=== PATIENT | female | born 1995 | race Caucasian/White ===

== ENCOUNTER → 2021-07-04 10:12 | Outpatient (BNVA) | payer OTHER, SELFPAY | PROVIDERS: Family Provider Family Medicine; PCP Family Medicine; Visit Provider Obstetrics & Gynecology | DX: Z34.91 Encounter for supervision of normal pregnancy, unspecified, first trimester (principal); Z3A.11 11 weeks gestation of pregnancy | CPT/HCPCS: 80307; 84315; 85027; 86592; 86762; 86803; 86850; 86900; 87086; 87340; 87491; 87591 ==

== ENCOUNTER → 2021-08-31 08:08 | Outpatient (BNVA) | payer OTHER, SELFPAY | PROVIDERS: Family Provider Family Medicine; PCP Family Medicine; Visit Provider Obstetrics & Gynecology | DX: Z36.87 Encounter for antenatal screening for uncertain dates (principal) | CPT/HCPCS: 76805 ==

== ENCOUNTER → 2021-10-31 09:17 | Outpatient (BNVA) | payer OTHER, SELFPAY | PROVIDERS: Family Provider Family Medicine; PCP Family Medicine; Visit Provider Obstetrics & Gynecology | DX: O44.40 Low lying placenta NOS or without hemorrhage, unspecified trimester (principal); Z3A.00 Weeks of gestation of pregnancy not specified | CPT/HCPCS: 82950; 84315; 85027 ==

== ENCOUNTER → 2021-11-03 08:08 | Outpatient (BNVA) | payer OTHER, SELFPAY | PROVIDERS: Family Provider Family Medicine; PCP Family Medicine; Visit Provider Obstetrics & Gynecology | DX: Z34.90 Encounter for supervision of normal pregnancy, unspecified, unspecified trimester (principal) | CPT/HCPCS: 82951; 82952 ==

== ENCOUNTER 2021-12-02 05:47 | Outpatient (CLI) | payer OTHER, SELFPAY ==
--- NOTE | 2021-12-02 06:15 | US_ITS ---
WS: [id number] LIMITED OBSTETRICAL ULTRASOUND HISTORY: O44.40 - Low lying placenta NOS or without hemorrhage COMPARISON: 08/31/2021 and 05/24/2021 Presentation: Cephalic. Cervix: Difficult to visualize. Does appear shorter than on the prior study. Cervical length is appro ximately 3.7 cm. head is obscuring the cervix. Placenta: Anterior, no previa or abruption. Placenta ends 2.8 cm above the internal cervical os. Grade: 2 HEART: FHR of 129 BPM. measurements: BPD = 7.9 cm = 31w6d HC = 29.8 cm = 33w0d AC = 28.8 cm = 32w6d FL = 6.5 cm = 33w3d Visually the amniotic fluid volume appears low normal. EFW: 2080 g; 58 %. AGA by ultrasound: 32 weeks 6 days BRYON by ultrasound: 01/21/2022 US/US OB limited [id number] IMPRESSION: 1. Single intrauterine gestation of 32 weeks 6 days with an EDC of 01/21/2022. 2. Appropriate growth since the first trimester ultrasound. 3. Anterior grade 2 placenta ends 2.8 cm above the internal cervical os. No pr evia. 4. Visually the amniotic fluid volume is low normal. Recommend follow-up abdom inal fluid index evaluation.
== END 2021-12-02 05:48 | disposition home or self-care (01) ==
LOC: RAD 05:47
PROVIDERS: PCP Family Medicine; Visit Provider Obstetrics & Gynecology
DX: O44.40 Low lying placenta NOS or without hemorrhage, unspecified trimester (principal); Z3A.00 Weeks of gestation of pregnancy not specified
CPT/HCPCS: 76815; 84315

== ENCOUNTER 2021-12-21 06:04 | Outpatient (CLI) | payer OTHER, SELFPAY ==
--- NOTE | 2021-12-21 06:15 | US_ITS ---
WS: [id number] ULTRASOUND OB FOCUSED HISTORY: Evaluate amniotic fluid index. COMPARISON: 12/02/2021 Single intrauterine gestation is present in vertex presentation. The cervix is closed. Placenta is an terior with no previa or abruption. heart rate at 133 BPM. Amniotic fluid index: 9.3 cm. Largest vertical pocket is 2.8 cm. US/US OB limited [id number] IMPRESSION: 1. Low normal amniotic fluid index. Amniotic fluid index is just above the 5th percentile for age and continues to be low normal. 2. Normal cardiac activity.
== END 2021-12-21 06:05 | disposition home or self-care (01) ==
PROVIDERS: PCP Family Medicine; Visit Provider Obstetrics & Gynecology
DX: Z34.90 Encounter for supervision of normal pregnancy, unspecified, unspecified trimester (principal)
CPT/HCPCS: 76815; 81000; 87081

== ENCOUNTER 2022-01-03 11:15 | Outpatient (CLI) | payer OTHER, SELFPAY ==
[2022-01-03 11:27] VITALS: BP 123/79; PULSE 93
[2022-01-03 11:30] VITALS: BMI 30.2
[2022-01-03 11:42] VITALS: RESP 17; TEMP 35.9
--- NOTE | 2022-01-03 11:43 | US_ITS ---
WS: [id number] ULTRASOUND OB FOCUSED HISTORY: BRADLY possible leaking fluids COMPARISON: 12/21/2021 Single intrauterine gestation in vertex position. Cervix is closed at 4.2 cm. heart rate at 138 BPM. Amniotic fluid index: 10.7 cm which is between the fifth and 50th percentiles. Slightly improved sinc e the prior study. Largest vertical pocket of amniotic fluid is 4.2 cm. Placenta is anterior grade 1. US/US OB limited [id number] IMPRESSION: 1. Amniotic fluid index between the fifth and 50th percentiles. Slightly impro slick since 12/21/2021. 2. Normal cardiac activity.
[2022-01-03 11:47] VITALS: BP 113/72; PULSE 79
[2022-01-03 12:07] VITALS: BP 123/73; PULSE 74
[2022-01-03 12:17] VITALS: BP 123/73; PULSE 74
== END 2022-01-03 12:17 | disposition home or self-care (01) ==
LOC: OPOB 11:20 → OBGYN 11:20
PROVIDERS: PCP Family Medicine; Visit Provider Obstetrics & Gynecology
DX: O26.899 Other specified pregnancy related conditions, unspecified trimester (principal); Z3A.00 Weeks of gestation of pregnancy not specified; N89.8 Other specified noninflammatory disorders of vagina
CPT/HCPCS: 59025; 76815; 83986; 84315

== ENCOUNTER 2022-01-15 06:20 | Outpatient (CLI) | payer OTHER, SELFPAY ==
[2022-01-15] VITALS (7 sets, daily range): BP systolic 115–133; BP diastolic 73–78; PULSE 83–100; RESP 17; TEMP 36.2; BMI 31.2
[2022-01-15 07:07] LABS: Glucose Urine UA Norm (Normal); Protein Urine Neg (Negative); Specific Gravity, Urine 1.015 (1.005-1.030); Urine Appearance Clear (CLEAR); Urine Color Yellow (Yellow); pH Urine 6.5 (5-7)
[2022-01-15 07:08] LABS: Blood Urine 3+ (Negative); Ketones Urine 1+ (Negative)
[2022-01-15 07:09] LABS: Bilirubin Urine Neg (Negative); Leukocyte Esterase Urine 1+ (Negative); Nitrate Urine Negative (Negative); Urobilinogen Urine Norm (Negative); WBC Urine 25-40 /hpf (0-5)
[2022-01-15 07:12] LABS: Add Urine Culture? Yes; Bacteria Urine 2+ /hpf; Mucus Urine 1+ /hpf
== END 2022-01-15 08:13 | disposition home or self-care (01) ==
LOC: OPOB 06:22 → OBGYN 08:11
PROVIDERS: PCP Family Medicine; Visit Provider Obstetrics & Gynecology
DX: O46.90 Antepartum hemorrhage, unspecified, unspecified trimester (principal); Z3A.00 Weeks of gestation of pregnancy not specified; R10.9 Unspecified abdominal pain
CPT/HCPCS: 59025; 81001; 87086; 99211

== ENCOUNTER → 2022-01-17 07:54 | Outpatient (BNVA) | payer OTHER, SELFPAY | PROVIDERS: PCP Family Medicine; Visit Provider Obstetrics & Gynecology | DX: Z34.90 Encounter for supervision of normal pregnancy, unspecified, unspecified trimester (principal) | CPT/HCPCS: 76815; 84315 ==

== ENCOUNTER 2022-01-19 01:38 | Outpatient (CLI) | payer OTHER, SELFPAY ==
[2022-01-19 01:38] VITALS: BMI 30.2
[2022-01-19 02:17] LABS: Add Urine Culture? Yes; Bacteria Urine 1+ /hpf; Bilirubin Urine Neg (Negative); Blood Urine 3+ (Negative); Glucose Urine UA Norm (Normal); Ketones Urine 2+ (Negative); Leukocyte Esterase Urine 2+ (Negative); Nitrate Urine Negative (Negative); Protein Urine Neg (Negative); RBC Urine 0-4 /hpf (0-2); Specific Gravity, Urine 1.005 (1.005-1.030); Urine Appearance Turbid (CLEAR); Urine Color Yellow (Yellow); Urobilinogen Urine Norm (Negative); WBC Urine 25-40 /hpf (0-5); pH Urine 7 (5-7)
[2022-01-19 03:28] LABS: Add Urine Culture? No; Bacteria Urine TRACE /hpf; Bilirubin Urine Neg (Negative); Blood Urine Neg (Negative); Glucose Urine UA Norm (Normal); Ketones Urine 3+ (Negative); Leukocyte Esterase Urine Negative (Negative); Nitrate Urine Negative (Negative); Protein Urine Neg (Negative); RBC Urine 0-4 /hpf (0-2); Squamous Epithelial Cell Urine 0-4 /hpf (0-5); Urine Appearance Clear (CLEAR); Urine Color Yellow (Yellow); Urobilinogen Urine Norm (Negative); WBC Urine 0-4 /hpf (0-5); pH Urine 7 (5-7)
== END 2022-01-19 03:52 | disposition home or self-care (01) ==
LOC: OPOB 01:40 → OBGYN 01:41
PROVIDERS: PCP Family Medicine; Visit Provider Obstetrics & Gynecology
DX: O26.899 Other specified pregnancy related conditions, unspecified trimester (principal); Z3A.00 Weeks of gestation of pregnancy not specified; R10.9 Unspecified abdominal pain
CPT/HCPCS: 59025; 81001; 87086; 99211

== ENCOUNTER 2022-01-19 13:31 | Inpatient (IN) | payer OTHER, SELFPAY ==
[2022-01-19] VITALS (65 sets, daily range): BP systolic 90–211; BP diastolic 56–134; PULSE 73–173; RESP 16; TEMP 36; O2SAT 92–100; BMI 30.4
[2022-01-19 14:00] LABS: Basophils % 0.2 %; Eosinophils # 0.1 10^3/uL (0.0-0.8); Eosinophils % 0.7 %; Hematocrit 40.1 % (37.0-47.0); Hemoglobin 13.3 g/dL (11.5-15.3); Lymphocytes # 1.4 10^3/uL (0.8-4.8); Lymphocytes % 14.9 %; Mean Corpuscular HGB Conc 33.2 g/dL (30.0-36.0); Mean Corpuscular Hemoglobin 31.1 pg (28.0-34.0); Mean Corpuscular Volume 93.7 fl (81-99); Mean Platelet Volume 10.2 fL (7.4-10.4); Monocytes # 0.5 10^3/uL (0.2-0.9); Monocytes % 4.8 %; Neutrophils # 7.49 10^3/uL (1.8-7.7); Neutrophils % 78.9 %; Nucleated Red Blood Cells % 0 %; Platelet Count 213 10^3/cmm (130-400); Red Blood Count 4.28 10^6/uL (4.1-5.3); Red Cell Distribution Width 13.5 % (12.1-15.1); White Blood Count 9.5 10^3/uL (4.0-10.0)
[2022-01-19] MEDS: miSOPROStol 100 mcg tablet 25 MCG VAGINAL (14:17)
[2022-01-19] MEDS: lactated ringers 1,000 ML 125 ML IV ×2 (14:17→21:00)
[2022-01-19] MEDS: ampicillin 2,000 MG in sodium chloride 0.9% (plus) 50 ML 100 MG IV (14:17)
[2022-01-19] MEDS: ampicillin 1,000 MG in sodium chloride 0.9% (plus) 50 ML 100 MG IV ×2 (18:32→22:27)
--- NOTE | 2022-01-19 19:38 | P.ANESUD_ITS ---
Pre-Anesthetic Update Pre-Anesthetic Assessment: Date of Surgery/Procedure: 01/19/22 Preop Marine gnosis: IUP Proposed Procedure: epidural Any changes to Pre-Anesthetic Assessment?: No Changes from Pre- Anesthetic Assessment: none Labs Last 48hrs: Short CBC 01/19/22 Range/Units 13:40 WBC 9.5 (4.0-10.0) 10^3/ uL Hgb 13.3 (11.5-15.3) g/dL Hct 40.1 (37.0-47.0) % MCV 93.7 (81-99) fl Plt Count 213 (130-400) 10^3/c mm Neut % (Auto) 78.9 % Neut # (Auto) 7.49 (1.8-7.7) 10^3/u L Vitals: Temperature 96.8 F L 01/19/22 13:24 Pulse Rate 81 01/19/22 18:29 Pulse Rhythm 01/19/22 15:11 Pulse Strength 3+ Normal 01/19/22 15:11 Respiratory Effort Non-Labored 01/19/22 15:11 Respiratory Depth Normal 01/19/22 15:11 Respiratory Patter n 01/19/22 15:11 Blood Pressure 133/81 01/19/22 18:29 Oxygen Delivery Me thod 01/19/22 15:11 Exam: Pre-Anes Outpt Exam: alert, oriented x 3, clear to auscultation bilaterally and regular rate & rhythm Cardiac Studies: No Data to Display
--- NOTE | 2022-01-19 20:11 | P.ANES_ITS ---
Anesthesia Procedures Procedure/Date: 01/19/22 epidural Procedure Narrative: epidural complete, bolus given, epidural pump initiated with TELEMETRY TECHNICIAN education given, vitals taken during procedure using OBIX system and satisfactory throughout, patient admits to decrease pain, report of procedure to OB RN Epidural: Time Out Performed: Yes Consents Signed: Procedure Consent Consent: requested by attending/covering physician, from patient, risks and benefits reviewed and patient agrees to proceed Lumbar Level: L3-L4 Epidural position: sitting Epidural procedure: sterile prep of area, 1% lidocaine to numb the area (3 mL), 18 g needle, negative for paresthesia passed, neg for paresthesia, test dose given, 1.5% xylocaine 1:200k epi (5 mL), 0.2% Ropivacaine bolus ml (5 mL), placed PCEA, no systemic response, sterile dressing applied, L.U.D. no apparent complications and 0.2% Ropiavacaine @ mls/hr (13 mL/hr)
--- NOTE | 2022-01-19 21:45 | PM.OPHPUD ---
Labor & Delivery H&P Update Date of Procedure: January 19, 2022 Date H&P Performed: 01/17/22 H&P update information: I have reviewed H&P completed within last 30 days, I have examined patient prior to procedure and No changes to prior documentation Changes to previous documentation: The patient requests induction of labor at term. Admission Diagnosis: at 40 weeks, 2 days, GBS positive Preop diagnosis: IUP Related Problem List Diagnoses (1) GBS (group B Streptococcus carrier), +RV culture, currently : (2) Supervision of normal :
[2022-01-20] VITALS (24 sets, daily range): BP systolic 104–292; BP diastolic 55–165; PULSE 70–164; RESP 16–18; TEMP 36.4–37.3; O2SAT 97–98
[2022-01-20] MEDS: ampicillin 1,000 MG in sodium chloride 0.9% (plus) 50 ML 100 MG IV (02:35)
[2022-01-20] MEDS: oxytocin 30 UNIT/500 ML BAG 500 UNIT IV (03:43)
[2022-01-20] MEDS: carboprost tromethamine 250 mcg/mL Amp IM (04:06)
[2022-01-20] MEDS: methylergonovine 0.2 mg/mL INJ 1 mL IM (04:06)
[2022-01-20] MEDS: miSOPROStol 200 mcg Tablet 800 MCG PR (04:07)
--- NOTE | 2022-01-20 04:15 | PM.DELIVERY ---
Delivery Note: Date of delivery: January 20, 2022 Pre-delivery diagnoses: iup@40w3d, GBS positive Post-delivery diagnoses: same-delivered hemorrhage Procedure: Delivering Physician: [email or web address] Estimated blood loss (mL): 400 Findings: term female in the BLANCA presentation. Pre-Delivery Course: The patient was admitted for induction at term. She received one dose of cytotec and had GBS prophylaxis started. She had cervical change and active labor began after the single dose of cytotec. She received an epidural for pain management. She reached 6 cm dilation and AROM was performed. She had complete cervical dilation. She was allowed to labor down and began to push. Delivery: The patient had complete cervical dilation and began to push. The head delivered in the BLANCA position over an intact perineum under epidural anesthesia. The nose and mouth were bulb suctioned. The shoulders and body delivered atraumatically. The baby was placed onto the mother's abdomen. The cord was clamped and cut. Cord blood was obtained. The placenta delivered spontaneously. It was inspected and found to be intact. Inspection of the perineum revealed no lacerations. Estimated blood loss 400 mL. Apgars on baby were 8 at 1 minute and 9 at 5 minutes. Weight of baby is 7 pounds. After delivery, the uterus continued to bleed. The pitocin was given as a bolus at 999. 800 mcg of cytotec was placed rectally. TXA was started. Bimanual exam was performed several times and clot removed from the uterus. There continued to be moderate bleeding. One dose of methergine was given and then one dose of hemabate. A trickle still persisted. A vaginal pack was placed and the vagina explored for distant and cervical lacerations and none were found. The packing was removed after 5 minutes and the bleeding was then normal and light. Mother and baby were stable post delivery. History History History 1 Term Miscarriages/Ectopic Living Children 0 Coding Level of Care Code Acute Facility Maintenance Mechanic for Chg Jus
[2022-01-20] MEDS: ondansetron 2 mg/ML SDV 2 mL 4 MG IVP (04:34)
[2022-01-20] MEDS: lactated ringers 1,000 ML 125 ML IV ×2 (04:45→04:47)
[2022-01-20] MEDS: acetaminophen 325 mg Tablet 650 MG PO (05:06)
[2022-01-20] MEDS: diphenoxylate/atropine Tablet 2 TAB PO (07:19)
[2022-01-20] MEDS: ibuprofen 800 mg tablet PO ×3 (09:35→21:13)
[2022-01-20] MEDS: prenatal vitamin Capsule 1 CAP PO (09:35)
--- NOTE | 2022-01-20 13:50 | ANE.PACU2 ---
Inpatient post-anesthesia follow up: Airway intact: Yes Vital signs: Temperature 98.4 F Pulse Rate 77 Respiratory Rate 16 Blood Pressure 106/72 Pulse Oximetry 99 Oxygen Delivery Me thod Room Air Oxygen Flow Rate Fraction of Inspir ed Oxygen Hydration adequate: Yes Nausea and vomiting: No Pain level: 1 Mental status: Baseline
[2022-01-20 18:16] LABS: Hematocrit 37.4 % (37.0-47.0); Mean Corpuscular HGB Conc 32.1 g/dL (30.0-36.0); Mean Corpuscular Hemoglobin 31.3 pg (28.0-34.0); Mean Corpuscular Volume 97.4 fl (81-99); Mean Platelet Volume 10.2 fL (7.4-10.4); Platelet Count 188 10^3/cmm (130-400); Red Blood Count 3.84 10^6/uL (4.1-5.3); Red Cell Distribution Width 13.6 % (12.1-15.1); White Blood Count 16.1 10^3/uL (4.0-10.0)
[2022-01-21 05:03] VITALS: BP 94/57; PULSE 69; RESP 16; O2SAT 98
--- NOTE | 2022-01-21 06:33 | P.DS_ITS ---
Discharge Providers FIREARMS SPECIALIST Date of Admission: 01/19/22 13:31 Date of Discharge: 01/21/22 Attending Provider at Admission: Vanessa Carcamo MD Attending Provider at Discharge: Reyna Arias MD - PRE-DELIVERY DIAGNOSIS: 26-year-old 1 para 0 at 40 weeks and 2 days gestation GBS positive Elective induction of labor POST-DELIVERY DIAGNOSIS: Vaginal delivery on 01/20/2022 PROCEDURE: Vaginal delivery on 01/20/2022 ANESTHESIA: Epidural DELIVERING PHYSICIAN: Dr. Carcamo HOSPITAL COURSE: She underwent an uncomplicated vaginal delivery on 01/20/2022---please refer to Dr. Carcamo's delivery note for details. She did well on day 0 and was ambulating well, tolerating regular diet, voiding freely, passing flatus. She was breast-feeding without difficulty and bonding well with her daughter. Pain was well-controlled with by mouth pain medication. She denied nausea, vomiting, fever, chills, shortness of breath, leg pain. She had moderate vaginal bleeding. On day # 1 she continued to do well with stable vital signs and stable hemoglobin at 12.0. She was discharged home on day 1 in a stable condition, as she desired early discharge. Warning signs for endometritis, mastitis, DVT/PE were reviewed with her. Post delivery activity restrictions were also reviewed with her at all her questions were answered to her satisfaction. Plans on using control pills for contraception which will be started at her visit EXAM AT DISCHARGE: Gen.: No acute distress Heart: S1-S2 heard, regular rate and rhythm Lungs: Clear to auscultation bilaterally Abdomen: Soft, fundus firm below umbilicus Legs: No calf tenderness, +1 bilateral pitting pedal edema. CONDITION AT DISCHARGE: Stable This documentation was created by [employer] openstack cloud consulting architect software (known for inherent openstack cloud consulting architect error). Every effort was made to assure accuracy of openstack cloud consulting architect. Any obvious errors or omissions should be clarified with the author of the document. Primary Care Provider: Jaime Mckay Diagnoses at Discharge Discharge Diagnosis (1) GBS (group B Streptococcus carrier), +RV culture, currently : Status: Acute (2) Supervision of normal : Status: Acute Reason for Visit Reason for Visit: induction Information Peripartum Data: Infant Delivery Method: Vaginal Physical Exam Urinary Catheter Management: Mendes: Cath Placed During This Visit: yes, but has since been removed by the nurse Reason for Continuing Indwelling Catheter: Decision to DC Catheter Urinary Catheter Date of Insertion: 01/19/22 Urinary Catheter Time of Insertion: 20:43 Date Urinary Catheter Removed: 01/20/22 Time Urinary Catheter Discontinued: 03:05 History History History 1 Term Miscarriages/Ectopic Living Children 0 Discharge Data Studies Completed and Pending Laboratory Results WBC 16.1 10^3/uL (4.0-10.0) H 01/20/22 17:50 RBC 3.84 10^6/uL (4.1-5.3) L 01/20/22 17:50 Hgb 12.0 g/dL (11.5-15.3) 01/20/22 17:50 Hct 37.4 % (37.0-47.0) 01/20/22 17:50 MCV 97.4 fl (81-99) 01/20/22 17:50 MCH 31.3 pg (28.0-34.0) 01/20/22 17:50 MCHC 32.1 g/dL (30.0-36.0) 01/20/22 17:50 RDW 13.6 % (12.1-15.1) 01/20/22 17:50 Plt Count 188 10^3/cmm (130-400) 01/20/22 17:50 MPV 10.2 fL (7.4-10.4) 01/20/22 17:50 Neut % (Auto) 78.9 % 01/19/22 13:40 Lymph % (Auto) 14.9 % 01/19/22 13:40 Bacon % (Auto) 4.8 % 01/19/22 13:40 Eos % (Auto) 0.7 % 01/19/22 13:40 Baso % (Auto) 0.2 % 01/19/22 13:40 Neut # (Auto) 7.49 10^3/uL (1.8-7.7) 01/19/22 13:40 Lymph # (Auto) 1.4 10^3/uL (0.8-4.8) 01/19/22 13:40 Bacon # (Auto) 0.5 10^3/uL (0.2-0.9) 01/19/22 13:40 Eos # (Auto) 0.1 10^3/uL (0.0-0.8) 01/19/22 13:40 Baso # (Auto) 0.0 10^3/uL (0.0-0.1) 01/19/22 13:40 Nucleated RBC % (auto) 0 % 01/19/22 13:40 Nucleated RBCs # 0.0 /100WBC 01/19/22 13:40 Vitals Last Vital Signs Temp 98.2 F 01/20/22 18:02 Pulse 69 01/21/22 05:03 Resp 16 01/21/22 05:03 BP 94/57 01/21/22 05:03 Pulse Ox 98 01/21/22 05:03 O2 Del Method 01/21/22 05:03 Discharge Plan Discharge Patient Disposition: Home Condition: Stable Prescriptions: New docusate sodium 100 mg capsule 100 mg PO BID PRN (Reason: constipation) Qty: 30 0RF ibuprofen 800 mg tablet 800 mg PO Q8H Qty: 30 0RF Continued prenat.vits,grecia,tei-cmfn-dqxmb Tablet 1 tab PO DAILY (DME) breast pump [Pump In Style Advanced] Device See Rx Instructions .ROUTE .MEDSUPPLY Qty: 1 0RF Rx Instructions: As directed Discharge Orders: Discharge Order (Routine); Ordered 01/21/22 Ordered By: Reyna Castellanos Referrals: Vanessa Carcamo MD [Physician] - (6-week ) Discharge Diet: Regular Discharge Activity: Limit activity as instructed Patient Instructions: Opioid Safety Activity Restrictions/Additional Instructions: No heavy lifting for 6 weeks, pelvic rest for 6 weeks Follow-up with Dr. Carcamo for 6-week visit Emergency room precautions reviewed Discharge Attestations FIREARMS SPECIALIST Time Spent in Discharge Care*: greater than 30 min Coding Level of Care Code Acute Transverse Abdominal Muscle Surgeon for Chg Fwd Diagnoses GBS (group B Streptococcus carrier), +RV culture, currently O99.820 Supervision of normal Z34.90
[2022-01-21] MEDS: prenatal vitamin Capsule 1 CAP PO (08:06)
[2022-01-21] MEDS: ibuprofen 800 mg tablet PO (08:06)
[2022-01-21] MEDS: docusate sodium 100 mg Capsule PO (08:06)
[2022-01-21 10:00] VITALS: BP 110/66; PULSE 83; RESP 18; O2SAT 95
== END 2022-01-21 10:01 | disposition home or self-care (01) | DRG 806 ==
LOC: OPOB 01-20 09:37 → OBGYN 01-20 10:33
PROVIDERS: Admitting Provider Obstetrics & Gynecology; PCP Family Medicine; Visit Provider Obstetrics & Gynecology
DX: O48.0 Post-term pregnancy (principal); O72.1 Other immediate postpartum hemorrhage; Z37.0 Single live birth; O99.824 Streptococcus B carrier state complicating childbirth; Z3A.40 40 weeks gestation of pregnancy
CPT/HCPCS: 36415; 51702; 59025; 59409; 85025; 85027; 96372; 99211; J0290; J2210; J2405; J2795